=== PATIENT | female | born 1945 | race Native Hawaiian/Other Pacific Islander ===

== ENCOUNTER 2023-03-30 15:25 | Emergency (ER) | payer OTHER ==
[~2023-03-30] VITALS: Ht 152.4 cm; Wt 93.9 kg
[~2023-03-30 15:25] MED LIST: LISI5TAB10 PO; MOBIC15 MG PO; PRAMIPEXOLE0.125 MG PO; SERT100T PO
[2023-03-30 16:06] LABS: PLATELET COUNT 90 K/uL (152-353)
[2023-03-30 16:22] LABS: POTASSIUM 4.1 mmol/L (3.6-5.2)
[2023-03-30 17:30] VITALS: BP 164/66; TEMP 98.1
[2023-03-30] MEDS ORDERED: VITAMIN DE1000 MCG/M IM (17:58)
[2023-03-30] MEDS ORDERED: HYDR5TAB9 PO (17:59)
[2023-03-30] MEDS ORDERED: DONEPEZIL HYDRO10 M1 PO (17:59)
[2023-03-30] MEDS ORDERED: DIVALPROEX500 M1 PO (17:59)
[2023-03-30] MEDS ORDERED: COZAAR25 MG PO (18:00)
[2023-03-30] MEDS ORDERED: AMLODIPINE BESYLATE PO (18:01)
[2023-03-30] MEDS ORDERED: MONT10TA PO (18:01)
[2023-03-30] MEDS ORDERED: METAMUCIL0.36 GM PO (18:01)
[2023-03-30] MEDS ORDERED: OMEP40CA PO (18:02)
[2023-03-30] MEDS ORDERED: ROPINIROLE1 MG PO (18:03)
[2023-03-30] MEDS ORDERED: SERT50TA PO (18:04)
[2023-03-30] MEDS ORDERED: THERA-M PO (18:04)
[2023-03-30] MEDS ORDERED: PAIN RELIEVER500 MG PO (18:05)
[2023-03-30] MEDS ORDERED: VISINE DRY EYE OPTH (18:05)
[2023-03-30] MEDS ORDERED: OXYGEN (18:11)
[2023-04-13] MEDS ORDERED: ACET-206 PO (13:09)
[2023-04-13] MEDS ORDERED: NORVASC 5MG TAB PO (13:09)
[2023-04-13] MEDS ORDERED: DIVA500T2 PO (13:10)
[2023-04-13] MEDS ORDERED: DONE5TAB PO (13:11)
[2023-04-13] MEDS ORDERED: LOSA50TA PO (13:11)
[2023-04-13] MEDS ORDERED: MAGNSUS68 PO (13:11)
[2023-04-13] MEDS ORDERED: MELOXICAM7.5 MG PO (13:12)
[2023-04-13] MEDS ORDERED: MONT10TA PO (13:12)
[2023-04-13] MEDS ORDERED: MULTTAB52 PO (13:13)
[2023-04-13] MEDS ORDERED: PANTOPRAZOLE 40MG TA PO (13:13)
[2023-04-13] MEDS ORDERED: METAMUCIL0.36 GM PO (13:14)
[2023-04-13] MEDS ORDERED: QUET100T2 PO (13:14)
[2023-04-13] MEDS ORDERED: ROPINIROLE0.5 MG PO (13:14)
[2023-04-13] MEDS ORDERED: SERT50TA PO (13:15)
== END 2023-03-30 17:30 | disposition other institution (70) ==
LOC: ED 15:25
PROVIDERS: Family Medicine
DX: F41.9 Anxiety disorder, unspecified (principal); I10 Essential (primary) hypertension; Z02.79 Encounter for issue of other medical certificate
CPT/HCPCS: 80053; 85027; 87635; 93005; 99283; U0003